=== PATIENT | female | born 1955 | race African-American/Black ===

== ENCOUNTER 2025-01-20 10:00 | Outpatient (CLI) | payer MEDICARE, SELFPAY ==
--- NOTE | ~2025-01-20 | XR_ITS ---
EXAMINATION: XR knee RT 3V, 01/20/2025 10:08 CDT HISTORY: RT KNEE PAIN SWELLING x3 MONTHS COMPARISON: No comparisons available. Findings: No acute fracture or malalignment. Moderate tricompartmental degenerative changes, small effusions Soft tissues unremarkable. Impression: No acute fracture or malalignment. Reviewed, dictated and finalized at location P. Impression: No acute fracture or malalignment.
== END 2025-01-20 10:01 | disposition home or self-care (01) ==
LOC: MICIMG 10:03
PROVIDERS: PCP Orthopaedic Surgery; Visit Provider Orthopaedic Surgery
DX: M17.11 Unilateral primary osteoarthritis, right knee (principal); M25.461 Effusion, right knee; R52 Pain, unspecified
CPT/HCPCS: 73562